=== PATIENT | male | born 1980 | race Caucasian/White ===

== ENCOUNTER → 2023-11-25 | Outpatient (CLI) | payer OTHER ==
[~2023-11-25] MED LIST: Adderall Xr 2525 MG PO; IBUP600 PO; INDO50 PO; Norco 5-325 Ta1 EACH PO; PRED20 PO; PROZAC40 MG PO
== END ==
LOC: LAB 16:00 → LAB SHORT 16:00
DX: H16.001 Unspecified corneal ulcer, right eye (principal)
CPT/HCPCS: 87070; 87205

== ENCOUNTER 2023-12-15 00:01 | Emergency (ER) | payer OTHER ==
[~2023-12-15] VITALS: Ht 190.5 cm; Wt 79.4 kg
[2023-12-15] MEDS ORDERED: HYDROmorphone HCl/Pf 1MG SYR IV ONE (00:10)
[2023-12-15] MEDS ORDERED: Lactated Ringer's 1,000 ML IV ONE (00:10)
[2023-12-15 00:15] VITALS: BP 153/103
[2023-12-15 00:21] LABS: BASOPHILS ABSOLUTE AUTO 0.04 K/mm3 (0.00-0.23); BASOPHILS PERCENT AUTO 1 % (0-2); EOSINOPHILS ABSOLUTE AUTO 0.13 K/mm3 (0.00-0.68); EOSINOPHILS PERCENT AUTO 2 % (0-6); Hematocrit 39.2 % (37.0-53.0); Hemoglobin 13.1 g/dL (13.5-17.5); IMMATURE GRAN ABSOLUTE AUTO 0.02 K/mm3 (0.00-0.10); IMMATURE GRAN PERCENT AUTO 0 % (0-1); LYMPHOCYTES ABSOLUTE AUTO 1.46 K/mm3 (0.84-5.20); LYMPHOCYTES PERCENT AUTO 21 % (21-46); MONOCYTES ABSOLUTE AUTO 0.63 K/mm3 (0.16-1.47); MONOCYTES PERCENT AUTO 9 % (4-13); Mean Corpuscular HGB 27.7 pg (26.0-34.0); Mean Corpuscular HGB Conc 33.4 g/dL (31.5-36.5); Mean Corpuscular Volume 83 fL (80-100); NEUTROPHILS ABSOLUTE AUTO 4.62 K/mm3 (1.96-9.15); NEUTROPHILS PERCENT AUTO 67 % (41-73); Platelet Count 327 K/mm3 (150-400); RDW Coefficient Variation 14.3 % (11.7-14.2); RDW Standard Deviation 43.2 fL (35.1-46.3); Red Blood Cell Count 4.73 M/mm3 (4.30-5.90)
[2023-12-15 00:37] LABS: International Normalized Ratio 0.96; Prothrombin Time Results 10.3 Sec (9.7-11.5)
[2023-12-15 00:42] LABS: Albumin, Blood 3.2 g/dL (3.4-5.0); Albumin/Globulin Ratio 0.7 (0.8-1.8); Bilirubin, Total 0.2 mg/dL (0.1-1.0); Bun/Creatinine Ratio 18.7 (12.0-20.0); Calcium, Blood 8.6 mg/dL (8.5-10.1); Creatinine, Blood 0.91 mg/dL (0.60-1.20); Globulin, Blood 4.3 g/dL (2.2-4.0); Total Protein, Blood 7.5 g/dL (6.4-8.2)
[2023-12-15] MEDS ORDERED: METHOTREXATE2.510 PO (00:58)
[2023-12-15] MEDS ORDERED: Robaxin750 MG PO (01:51)
== END 2023-12-15 02:00 ==
LOC: ER 00:01
PROVIDERS: Student in an Organized Health Care Education/Training Program
DX: S81.011A Laceration without foreign body, right knee, initial encounter (principal); S80.811A Abrasion, right lower leg, initial encounter; S40.212A Abrasion of left shoulder, initial encounter; G89.11 Acute pain due to trauma; V29.99XA Rider (driver) (passenger) of other motorcycle injured in unspecified traffic accident, initial encounter; M06.9 Rheumatoid arthritis, unspecified; F17.210 Nicotine dependence, cigarettes, uncomplicated
CPT/HCPCS: 12001; 70450; 71260; 72125; 73562-RT; 74177; 80053; 83690; 84484; 85025; 85610; 85730; 86850; 86900; 86901; 96374-59; 99284-25; J1170; J7120; Q9967

== ENCOUNTER 2023-12-26 03:49 | Day surgery (SDC) | payer OTHER ==
[~2023-12-26 03:49] MED LIST changes: +METHOTREXATE2.510 PO; +Robaxin750 MG PO
[2023-12-26] MEDS ORDERED: Lidocaine HCl 4% Cream 5 GM ONE (13:07)
== END 2023-12-26 22:37 | disposition home or self-care (01) ==
LOC: WOUND 03:49
DX: S81.001A Unspecified open wound, right knee, initial encounter (principal); F17.200 Nicotine dependence, unspecified, uncomplicated; M06.9 Rheumatoid arthritis, unspecified; I73.00 Raynaud's syndrome without gangrene
CPT/HCPCS: 87070; 87075; 87077; 87147; 87186; 87205; A6213; A9270; G0463

== ENCOUNTER 2024-01-01 03:39 | Day surgery (SDC) | payer OTHER ==
[2024-01-01] MEDS ORDERED: Lidocaine HCl 4% Cream 5 GM ONE (12:17)
== END 2024-01-01 23:00 | disposition home or self-care (01) ==
LOC: WOUND 03:39
DX: S81.001A Unspecified open wound, right knee, initial encounter (principal); X58.XXXA Exposure to other specified factors, initial encounter
CPT/HCPCS: A6213; A9270

== ENCOUNTER 2024-01-09 08:00 | Day surgery (SDC) | payer OTHER | END 2024-01-09 23:00 | disposition home or self-care (01) | LOC: WOUND 08:00 | DX: S81.001D Unspecified open wound, right knee, subsequent encounter (principal); M06.9 Rheumatoid arthritis, unspecified; I73.00 Raynaud's syndrome without gangrene | CPT/HCPCS: A6213; G0463 ==